=== PATIENT | male | born 1995 | race Caucasian/White ===

== ENCOUNTER 2025-04-10 18:55 | Emergency (ER) | payer OTHER, SELFPAY ==
[2025-04-10 19:02] VITALS: BP 136/81; PULSE 95; RESP 16; TEMP 36.9; O2SAT 98
--- NOTE | 2025-04-10 19:15 | DI.RAD_ITS ---
Exam(s) XR FOOT LT COMPLETE EXAM: XR FOOT LT COMPLETE CLINICAL HISTORY: cut foot, ?foreign body. TECHNIQUE: 2D digital imaging was performed. COMPARISON: No exams were available for comparison FINDINGS: 3 views No evidence of acute fracture or diastasis of the Lisfranc joint. Bone density is normal. No osseou s lesions. No pes planus. There are no degenerative changes in the great toe metatarsophalangeal joint nor within the other art iculations of the foot. There is no radiopaque foreign body. No inferior calcaneal spur. Incidenta lly noted is some degenerative change at the 1st tarsometatarsal joint, this being the articulation b etween the base of the great toe metatarsal and the medial cuneiform bone. Other tarsometatarsal quan nts appear unremarkable.. Bone density normal. There is, however, he nonexpansile lucent area at the midshaft of the proximal phalanx of the 2nd toe. Soft tissues appear unremarkable and there are no foreign bodies. IMPRESSION: No soft tissue findings. No radiopaque foreign body. No acute osseous findings. However, incidentally noted is a lucency at the mid aspect of the proxima l phalanx of the 2nd toe, nonexpansile. This may represent an incidental bone lesion. DATA REPOSITORY: RADIATION DOSE DELIVERED:
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
[2025-04-10] MEDS: Cephalexin 500 MG CAP PO (19:32)
[2025-04-10] MEDS: Ciprofloxacin 500 MG TAB PO (19:32)
[2025-04-10 21:12] VITALS: BP 136/81; PULSE 95; RESP 16; TEMP 36.9; O2SAT 98
--- NOTE | 2025-04-13 11:53 | DI.VRAD_ITS ---
PROCEDURE INFORMATION: Exam: XR Left Foot Exam date and time: 04/10/2025 7:53 PM Age: 29 years old Clinical indication: Injury or trauma; Other: Stepped on glass; Laceration; Left; With foreign body; Injury date: 04/10/25; Cut foot, ? foreign body TECHNIQUE: Imaging protocol: Radiologic exam of the left foot. Views: 3 or more views. COMPARISON: No relevant prior studies available. FINDINGS: Bones/joints: Mild first metatarsal phalangeal degerative changes. No acute fracture or subluxation. Soft tissues: No radiopaque foreign body is seen. IMPRESSION: No acute bony pathology. Dictated and Authenticated by: Jes Garner MD. Orderin Jessenia Sullivan MD
== END 2025-04-11 00:14 | disposition home or self-care (01) ==
PROVIDERS: Emergency Provider Emergency Medicine
DX: S91.312A Laceration without foreign body, left foot, initial encounter (principal); W22.8XXA Striking against or struck by other objects, initial encounter; Y93.01 Activity, walking, marching and hiking; Y92.89 Other specified places as the place of occurrence of the external cause
CPT/HCPCS: 12001; 99283; 73630